=== PATIENT | female | born 1970 | race Caucasian/White ===

== ENCOUNTER 2017-08-05 22:36 | Emergency (ER) | payer BC ==
[~2017-08-05] VITALS: Ht 170.2 cm; Wt 50.0 kg
[~2017-08-05 22:36] MED LIST: LORTA5 PO
[2017-08-05 22:40] VITALS: BP 121/63; PULSE 90; RESP 20; TEMP 98; O2SAT 99
[2017-08-05] MEDS ORDERED: SODIUM CHLOR 0.9% 1000 ML INJ 1,000 ML IV SCH (22:43)
[2017-08-05] MEDS ORDERED: METOCLOPRAMIDE HCL 10 MG/2 ML VIAL IV PUSH ONE (22:45)
[2017-08-05] MEDS ORDERED: SODIUM CHLOR 0.9% 1000 ML INJ 1,000 ML IV ONE (22:45)
[2017-08-05] MEDS ORDERED: SODIUM CHLORIDE 0.9% FLUSH 10 ML FLUSH IV FLUSH PRN (22:45)
--- NOTE | 2017-08-05 22:51 | PD ---
HPI Chief Complaint: Nausea/vomiting Time Seen by Provider: 22:43 Travel History International Travel<30 days: No Contact w/Intl Traveler<30days: No Traveled to known affect area: No History of Present Illness HPI 46-year-old female with history of vasculitis, hypothyroidism, on methotrexate and Levoxyl, brought in by ambulance from home for evaluation of nausea, vomiting, and dizziness after having 2 alcoholic drinks tonight. The patient reports that she does not usually drink alcohol. She was provided 4 mg of Zofran and 300 cc of normal saline by EMS. Upon arrival she is still feeling nauseous and dizzy. States that she felt well throughout the day today. No fevers or recent illness. She was having some abdominal cramping which was lower earlier when she first began vomiting, however currently denies any abdominal pain. She is unsure if there is any blood in her emesis. PFSH Past Medical History Cardiovascular Problems: Yes (VASCULITIS) Diminished Hearing: No Thyroid Disease: Yes (HASHIMOTOS) Past Surgical History Section: Yes (X2) Gynecologic Surgery: Yes (UTERINE ABLASION) Hysterectomy: Yes Social History Alcohol Use: Yes (OCC) Tobacco Use: No Substance Use: No Allergies-Medications (Allergen,Severity, Reaction): Coded Allergies: ciprofloxacin (Unverified Allergy, Severe, 08/05/17) Reported Meds & Prescriptions Reported Meds & Active Scripts Active Reported Levothyroxine (Levothyroxine Sodium) 125 Mcg Tab 125 Mcg PO DAILY Rasuvo (Methotrexate (Antirheumatic)) 20 Mg/0.4 Ml Inj 10 Mg IM Q7D PRN Review of Systems Except as stated in HPI: all other systems reviewed are Neg Physical Exam Narrative GENERAL: Well-developed, well-nourished, holding hand over her eyes secondary to dizziness, no apparent distress. SKIN: Focused skin assessment warm/dry. HEAD: Atraumatic. Normocephalic. EYES: Pupils equal and round. No scleral icterus. No injection or drainage. ENT: No nasal bleeding or discharge. Mucous membranes pink and dry. NECK: Trachea midline. No JVD. CARDIOVASCULAR: Regular rate and rhythm. RESPIRATORY: No accessory muscle use. Clear to auscultation. Breath sounds equal bilaterally. GASTROINTESTINAL: Abdomen soft, non-tender, nondistended. MUSCULOSKELETAL: No obvious deformities. No clubbing. No cyanosis. No edema. NEUROLOGICAL: Awake and alert. No obvious cranial nerve deficits. Motor grossly within normal limits. Normal speech. PSYCHIATRIC: Appropriate mood and affect; insight and judgment normal. Data Data Last Documented VS Vital Signs Date Time Temp Pulse Resp B/P (MAP) Pulse Ox O2 Delivery O2 Flow Rate FiO2 08/06/17 02:06 08/06/17 01:30 88 18 100 Room Air 08/05/17 22:40 98.0 Orders Orders Beta Hcg (Quant/Titer) (08/05/17 22:43) Complete Blood Count With Diff (08/05/17 22:43) Comprehensive Metabolic Panel (08/05/17 22:43) Urinalysis - C+S If Indicated (08/05/17 22:43) Iv Access Insert/Monitor (08/05/17 22:43) Ecg Monitoring (08/05/17 22:43) Oximetry (08/05/17 22:43) Sodium Chlor 0.9% 1000 Ml Inj (Ns 1000 M (08/05/17 22:43) Sodium Chloride 0.9% Flush (Ns Flush) (08/05/17 22:45) Electrocardiogram (08/05/17 22:43) Alcohol (Ethanol) (08/05/17 22:43) Metoclopramide Inj (Reglan Inj) (08/05/17 22:45) Sodium Chlor 0.9% 1000 Ml Inj (Ns 1000 M (08/05/17 22:45) Labs Laboratory Tests Test 08/05/17 22:50 08/06/17 00:25 White Blood Count 5.5 TH/MM3 Red Blood Count 3.80 MIL/MM3 Hemoglobin 11.6 GM/DL Hematocrit 34.5 % Mean Corpuscular Volume 90.8 FL Mean Corpuscular Hemoglobin 30.6 PG Mean Corpuscular Hemoglobin Concent 33.7 % Red Cell Distribution Width 13.5 % Platelet Count 186 TH/MM3 Mean Platelet Volume 7.8 FL Neutrophils (%) (Auto) 77.1 % Lymphocytes (%) (Auto) 15.9 % Monocytes (%) (Auto) 5.6 % Eosinophils (%) (Auto) 0.4 % Basophils (%) (Auto) 1.0 % Neutrophils # (Auto) 4.2 TH/MM3 Lymphocytes # (Auto) 0.9 TH/MM3 Monocytes # (Auto) 0.3 TH/MM3 Eosinophils # (Auto) 0.0 TH/MM3 Basophils # (Auto) 0.1 TH/MM3 CBC Comment DIFF FINAL Differential Comment Blood Urea Nitrogen 13 MG/DL Creatinine 0.70 MG/DL Random Glucose 98 MG/DL Total Protein 7.2 GM/DL Albumin 4.0 GM/DL Calcium Level 8.0 MG/DL Alkaline Phosphatase 43 U/L Aspartate Amino Transf (AST/SGOT) 12 U/L Alanine Aminotransferase (ALT/SGPT) 20 U/L Total Bilirubin 0.3 MG/DL Sodium Level 142 MEQ/L Potassium Level 3.4 MEQ/L Chloride Level 108 MEQ/L Carbon Dioxide Level 24.3 MEQ/L Anion Gap 10 MEQ/L Estimat Glomerular Filtration Rate 89 ML/MIN Human Chorionic Gonadotropin, Quant LESS THAN 1 MIU/ML Ethyl Alcohol Level 167 MG/DL Urine Color YELLOW Urine Turbidity CLEAR Urine pH 6.0 Urine Specific [place] 1.012 Urine Protein NEG mg/dL Urine Glucose (UA) NEG mg/dL Urine Ketones 15 mg/dL Urine Occult Blood NEG Urine Nitrite NEG Urine Bilirubin NEG Urine Leukocyte Esterase NEG Urine RBC 0-3 /hpf Urine Squamous Epithelial Cells 0-5 /hpf Urine Bacteria OCC /hpf Urine Hyaline Casts 0-2 /lpf Urine Mucus OCC /lpf Microscopic Urinalysis Comment CULT NOT INDICATED MDM Medical Decision Making Medical Screen Exam Complete: Yes Emergency Medical Condition: Yes Medical Record Reviewed: Yes Interpretation(s) EKG: Sinus, rate 91, normal axis, incomplete RBBB, severe motion artifact, no acute ischemic abnormalities Differential Diagnosis Alcohol intoxication, dehydration, metabolic abnormality Narrative Course Initial vital signs show heart rate 90, blood pressure 121/63, pulse ox 99% on room air, oral temp of 98F. CBC shows WBC 5.5, hemoglobin 11.6, hematocrit 34.5, platelets 186. CMP is remarkable for potassium 3.4, otherwise unremarkable. Beta hCG is negative. Alcohol level is 167. Patient was given IV Zofran and 300 cc of normal saline by EMS. Here in the emergency department she was given a liter of normal saline and IV Reglan 10 mg. On reassessment she is sleeping comfortably and when awoken she nods her head yes that she is feeling improved and no longer feels nauseous. Apparently the patient had a syncopal episode while EMS was at her home. CT head will be ordered to rule out an intracranial abnormality. At approximately midnight at the end of my shift the patient was signed out to Dr. Rodas to follow up with CT head and formulate a disposition. Dick Shepherd MD Aug 05, 2017 22:51
[2017-08-05 23:00] VITALS: O2SAT 99
[2017-08-05 23:04] LABS: AUTOMATED NEUTROPHIL # 4.2 TH/MM3 (1.8-7.7); BASOPHIL # 0.1 TH/MM3 (0-0.2); EOSINOPHIL % 0.4 % (0.0-4.0); HEMATOCRIT 34.5 % (35.0-46.0); LYMPH % 15.9 % (9.0-44.0); LYMPHOCYTE # 0.9 TH/MM3 (1.0-4.8); MEAN CELL VOLUME 90.8 FL (80.0-100.0); MEAN CORPUSCULAR HEMOGLOBIN 30.6 PG (27.0-34.0); MEAN CORPUSCULAR HGB CONC 33.7 % (32.0-36.0); MONO % 5.6 % (0.0-8.0); NEUT % 77.1 % (16.0-70.0); PLATELET COUNT 186 TH/MM3 (150-450); RED CELL DISTRIBUTION WIDTH 13.5 % (11.6-17.2); WHITE BLOOD COUNT 5.5 TH/MM3 (4.0-11.0)
[2017-08-05 23:13] LABS: CHLORIDE 108 MEQ/L (98-107); POTASSIUM 3.4 MEQ/L (3.5-5.1); SODIUM (NA) 142 MEQ/L (136-145)
[2017-08-05 23:17] LABS: ANION GAP 10 MEQ/L (5-15); BICARBONATE 24.3 MEQ/L (21.0-32.0); BLOOD UREA NITROGEN 13 MG/DL (7-18)
[2017-08-05 23:20] LABS: ALT (GPT) 20 U/L (10-53); AST (GOT) 12 U/L (15-37); GLOMERULAR FILTRATION RATE 89 ML/MIN (>89)
[2017-08-05 23:21] LABS: TOTAL BILIRUBIN ADULT 0.3 MG/DL (0.2-1.0)
[2017-08-05 23:23] LABS: ALCOHOL 167 MG/DL (0-5); ALKALINE PHOSPHATASE 43 U/L (45-117)
[2017-08-05 23:25] LABS: BETA HCG QUANT LESS THAN 1 MIU/ML (0-5)
[2017-08-05 23:50] VITALS: BP 96/67; PULSE 84; RESP 18; O2SAT 100
[2017-08-05 23:52] LABS: HEMO FLAGS DIFF FINAL
[2017-08-06 00:30] VITALS: BP 104/61; PULSE 92; RESP 18; O2SAT 100
[2017-08-06 00:36] LABS: BLOOD, URINE NEG (NEG); GLUCOSE,URINE NEG (NEG); KETONE, URINE 15 mg/dL (NEG); NITRITE,URINE NEG (NEG)
[2017-08-06] MEDS ORDERED: METH0.35 IM (00:39)
[2017-08-06] MEDS ORDERED: LEVO125T4 PO (00:40)
[2017-08-06 00:42] LABS: BACTERIA, URINE OCC /hpf; MUCUS URINE OCC /lpf (OCC); SQUAMOUS EPITHELIAL CELL URINE 0-5 /hpf (0-5); URINE COLOR YELLOW (YELLW/STRAW)
[2017-08-06 00:44] LABS: COMMENT (UR) CULT NOT INDICATED; CULTURE IF INDICATED CULT NOT INDICATED; HYALINE CAST, URINE 0-2 /lpf (RARE); RBC, URINE 0-3 /hpf (0-3)
[2017-08-06 01:30] VITALS: BP 112/60; PULSE 88; RESP 18; O2SAT 100
--- NOTE | 2017-08-06 03:44 | PD ---
Physical Exam Date Seen by Provider: Aug 06, 2017 Time Seen by Provider: 00:30 Narrative accepted in transfer of care from DR Shepherd GENERAL: Well-developed well-nourished female in no acute distress no respiratory distress sitting on stretcher upright; gcs 15 Data Data Last Documented VS Vital Signs Date Time Temp Pulse Resp B/P (MAP) Pulse Ox O2 Delivery O2 Flow Rate FiO2 08/06/17 02:06 08/06/17 01:30 88 18 100 Room Air 08/05/17 22:40 98.0 Orders Orders Beta Hcg (Quant/Titer) (08/05/17 22:43) Complete Blood Count With Diff (08/05/17 22:43) Comprehensive Metabolic Panel (08/05/17 22:43) Urinalysis - C+S If Indicated (08/05/17 22:43) Iv Access Insert/Monitor (08/05/17 22:43) Ecg Monitoring (08/05/17 22:43) Oximetry (08/05/17 22:43) Sodium Chlor 0.9% 1000 Ml Inj (Ns 1000 M (08/05/17 22:43) Sodium Chloride 0.9% Flush (Ns Flush) (08/05/17 22:45) Electrocardiogram (08/05/17 22:43) Alcohol (Ethanol) (08/05/17 22:43) Metoclopramide Inj (Reglan Inj) (08/05/17 22:45) Sodium Chlor 0.9% 1000 Ml Inj (Ns 1000 M (08/05/17 22:45) Ct Brain W/O Iv Contrast(Rout) (08/05/17 ) Labs Laboratory Tests Test 08/05/17 22:50 08/06/17 00:25 White Blood Count 5.5 TH/MM3 Red Blood Count 3.80 MIL/MM3 Hemoglobin 11.6 GM/DL Hematocrit 34.5 % Mean Corpuscular Volume 90.8 FL Mean Corpuscular Hemoglobin 30.6 PG Mean Corpuscular Hemoglobin Concent 33.7 % Red Cell Distribution Width 13.5 % Platelet Count 186 TH/MM3 Mean Platelet Volume 7.8 FL Neutrophils (%) (Auto) 77.1 % Lymphocytes (%) (Auto) 15.9 % Monocytes (%) (Auto) 5.6 % Eosinophils (%) (Auto) 0.4 % Basophils (%) (Auto) 1.0 % Neutrophils # (Auto) 4.2 TH/MM3 Lymphocytes # (Auto) 0.9 TH/MM3 Monocytes # (Auto) 0.3 TH/MM3 Eosinophils # (Auto) 0.0 TH/MM3 Basophils # (Auto) 0.1 TH/MM3 CBC Comment DIFF FINAL Differential Comment Blood Urea Nitrogen 13 MG/DL Creatinine 0.70 MG/DL Random Glucose 98 MG/DL Total Protein 7.2 GM/DL Albumin 4.0 GM/DL Calcium Level 8.0 MG/DL Alkaline Phosphatase 43 U/L Aspartate Amino Transf (AST/SGOT) 12 U/L Alanine Aminotransferase (ALT/SGPT) 20 U/L Total Bilirubin 0.3 MG/DL Sodium Level 142 MEQ/L Potassium Level 3.4 MEQ/L Chloride Level 108 MEQ/L Carbon Dioxide Level 24.3 MEQ/L Anion Gap 10 MEQ/L Estimat Glomerular Filtration Rate 89 ML/MIN Human Chorionic Gonadotropin, Quant LESS THAN 1 MIU/ML Ethyl Alcohol Level 167 MG/DL Urine Color YELLOW Urine Turbidity CLEAR Urine pH 6.0 Urine Specific [place] 1.012 Urine Protein NEG mg/dL Urine Glucose (UA) NEG mg/dL Urine Ketones 15 mg/dL Urine Occult Blood NEG Urine Nitrite NEG Urine Bilirubin NEG Urine Leukocyte Esterase NEG Urine RBC 0-3 /hpf Urine Squamous Epithelial Cells 0-5 /hpf Urine Bacteria OCC /hpf Urine Hyaline Casts 0-2 /lpf Urine Mucus OCC /lpf Microscopic Urinalysis Comment CULT NOT INDICATED MDM Medical Record Reviewed: Yes Supervised Visit with VIJAY: No Interpretation(s) CBC & BMP Diagram 08/05/17 22:50 Total Protein 7.2, Albumin 4.0, Calcium Level 8.0 L, Alkaline Phosphatase 43 L, Aspartate Amino Transf (AST/SGOT) 12 L, Alanine Aminotransferase (ALT/SGPT) 20, Total Bilirubin 0.3 Vital Signs Date Time Temp Pulse Resp B/P (MAP) Pulse Ox O2 Delivery O2 Flow Rate FiO2 08/06/17 02:06 08/06/17 01:30 88 18 112/60 (77) 100 Room Air 08/06/17 00:30 92 18 104/61 (75) 100 Room Air 08/05/17 23:50 84 18 96/67 (77) 100 Room Air 08/05/17 23:00 99 Room Air 08/05/17 23:00 99 Room Air 08/05/17 22:40 98.0 90 20 121/63 (82) 99 alcohol: 165, elevated Differential Diagnosis accepted in transfer of care from DR Shepherd; please refer to his dictation Narrative Course accepted in transfer of care from Dr Shepherd; for follow up of pending CT and disposition Patient refusing CT of the brain noncontrast. Patient reports she does not believe that she needs this imaging study. Specimens at bedside. Patient states that she does not want to have any further testing is stable and ready to go home patient question about report of syncopal episode and significant other reports that she passed out for several minutes. Time is for different times prior to arrival of EMS and that he even attempted rescue breathing on her a few times although she never lost her pulse. Patient also reportedly had a syncopal episode in the shower however the significant other who states he was with her did not report any head injury. No noted witnessed seizure activity according to the significant other. Also has reports that when paramedics arrived she had 2 more brief episodes of syncope however reportedly at time of EMS report to the patient's nurse episodes that occurred with fainting/syncope or witnessed to have the patient awake and talking during episodes. There is reportedly no head trauma or neck trauma or other injury associated with the syncopal episodes. Patient is aware that her alcohol level is elevated and that based on the fact that the significant other's shares that he had to attempt rescue breathing several times and that she passed out more than one time the recommendation is for observation admission to the hospital for ongoing cardiac monitoring imaging study and further assessment of patient' s condition. Patient reports that she does not want to be admitted does not have any further testing does not want to have any imaging study. I discussed with patient risk of not being admitted including possible rhythm disturbance patient also reports that she was recently diagnosed with some type of block of her heart and possible rhythm disturbance. Again it was encouraged that the patient be admitted to the hospital for at least observation and orders to pursue ongoing cardiac monitoring however the patient again is adamant she does not want to stay in is aware that she will need to sign out AGAINST MEDICAL ADVICE should she choose not to be admitted. AMA: The risks of leaving against medical advice without further evaluation treatment were discussed with the patient. These risks include cardiac dysfunction, cardiac dysrhythmia, possible heart attack, possible stroke or . The patient indicated understanding of these risks and appeared to have the capacity to make this decision. Diagnosis Primary Impression: Alcohol ingestion Additional Impressions: Syncope Qualified Codes: R55 - Syncope and collapse Left against medical advice Additional Instruction: Even though you have decided to leave AGAINST MEDICAL ADVICE return immediately to the emergency for for any concerns or change in condition Disposition: 07 AGAINST MEDICAL ADVICE Condition: Stable Rosa Maria Rodas MD Aug 06, 2017 03:44
--- NOTE | 2017-08-06 14:21 | EKG ---
Date Performed: 08/05/2017 Time Performed: 22:54:06 PTAGE: 46 years EKG: Sinus rhythm POSSIBLE LEFT ATRIAL ENLARGEMENT INCOMPLETE RIGHT BUNDLE BRANCH BLOCK SEPTAL MYOCARDIAL INFARCTION A BNORMAL ECG NO PREVIOUS TRACING DOCTOR: Kishore Vega Interpretating Date/Time 08/06/2017 14:14:31
== END 2017-08-06 02:06 | disposition left against medical advice (07) ==
LOC: PHED 22:36
DX: F10.129 Alcohol abuse with intoxication, unspecified (principal); R55 Syncope and collapse; Z53.21 Procedure and treatment not carried out due to patient leaving prior to being seen by health care provider; Y90.6 Blood alcohol level of 120-199 mg/100 ml; E06.3 Autoimmune thyroiditis; Z86.79 Personal history of other diseases of the circulatory system
CPT/HCPCS: 80053; 80307; 81001; 84702; 85025; 93005; 96361; 96374; 99284; J2765; J7030